=== PATIENT | female | born 1965 | race Caucasian/White ===

== ENCOUNTER 2022-03-27 19:46 | Emergency (ER) | payer OTHER ==
[~2022-03-27] VITALS: Ht 160 cm; Wt 74.8 kg
[2022-03-27] MEDS ORDERED: SUBOXONE 8 MG-1 EACH SL (20:19)
[2022-03-27] MEDS ORDERED: ALBU2.5V5 INH (20:20)
[2022-03-27] MEDS ORDERED: SUMA25 PO (20:20)
== END 2022-03-27 21:45 | disposition home or self-care (01) ==
LOC: ER 19:46
DX: S05.01XA Injury of conjunctiva and corneal abrasion without foreign body, right eye, initial encounter (principal); X58.XXXA Exposure to other specified factors, initial encounter; H54.61 Unqualified visual loss, right eye, normal vision left eye; F17.210 Nicotine dependence, cigarettes, uncomplicated; Z88.1 Allergy status to other antibiotic agents; Z79.899 Other long term (current) drug therapy
CPT/HCPCS: A9270